=== PATIENT | female | born 1990 | race American Indian/Alaskan Native ===

== ENCOUNTER 2021-06-27 09:48 | Emergency (ER) | payer SELFPAY ==
[2021-06-27] MEDS ORDERED: BUTALB/ACETAMINOPHEN/CAFFEINE TAB PO ONE (10:38)
[2021-06-27] MEDS ORDERED: CYCLOBENZAPRINE 10 MG TAB PO ONE (10:38)
--- NOTE | 2021-06-27 11:11 | Emergency Department Report ---
ED Fall HPI - General Chief Complaint: Fall Stated Complaint: NECK/ SHOULDER Time Seen by Provider: 06/27/21 10:33 Source: patient Mode of arrival: Ambulatory Limitations: No Limitations - History of Present Illness Initial Comments: Patient is a 30-year-old female presents emergency room with complaints of a slip and fall that occurred yesterday. Patient states that she was in the shower when she slipped and fell. She is complaining of headache, neck pain, low back pain, right shoulder pain. She denies any loss of consciousness, vomiting, vision changes, numbness, weakness, bowel or bladder incontinence, any other injury. - Related Data Previous Rx's Medication Instructions Recorded Last Taken Type Naproxen 375 mg PO BID PRN #14 tablet 06/27/21 Unknown Rx methOCARBAMOL [Robaxin TAB] 500 mg PO BID PRN #14 tab 06/27/21 Unknown Rx Allergies Allergy/AdvReac Type Severity Reaction Status Date / Time coconut Allergy Swelling Verified 06/27/21 09:53 ED Review of Systems ROS: Stated complaint: NECK/ SHOULDER Other details as noted in HPI Comment: All other systems reviewed and negative ED Past Medical Hx - Past Medical History Previous Medical History?: No - Surgical History Past Surgical History?: No - Medications Home Medications: Home Medications Medication Instructions Recorded Confirmed Last Taken Type Naproxen 375 mg PO BID PRN #14 tablet 06/27/21 Unknown Rx methOCARBAMOL [Robaxin TAB] 500 mg PO BID PRN #14 tab 06/27/21 Unknown Rx ED Physical Exam - General Limitations: No Limitations General appearance: alert, in no apparent distress - Head Head exam: Present: atraumatic, normocephalic, other (no skull or facial bony ttp, no hematoma) - Eye Eye exam: Present: normal appearance - ENT ENT exam: Present: mucous membranes moist - Neck Neck exam: Present: normal inspection, tenderness (bilateral paraspinal c-spine ttp, no step offs, no deformities ), full ROM. Absent: meningismus - Respiratory Respiratory exam: Present: normal lung sounds bilaterally. Absent: respiratory distress, wheezes, rales, rhonchi, stridor, chest wall tenderness, accessory muscle use, decreased breath sounds, prolonged expiratory - Cardiovascular Cardiovascular Exam: Present: regular rate, normal rhythm, normal heart sounds. Absent: systolic murmur, diastolic murmur, rubs, gallop - Extremities Exam Extremities exam: Present: other (no bony ttp of the RUE, mild right trapezius ttp, no crepitus, no ecchymosis, no deformity, no sulcus sign, clavicles are eq ual, no clavicular ttp, FROM, neurovascularly intact) - Back Exam Back exam: Present: normal inspection, full ROM, paraspinal tenderness (bilateral lumbar paraspinal muscular ttp, no midline t-spine or l-spine ttp, no step offs, no deformities). Absent: vertebral tenderness - Neurological Exam Neurological exam: Present: alert, oriented X3, CN II-XII intact, normal gait. Absent: motor sensory deficit - Psychiatric Psychiatric exam: Present: normal affect, normal mood - Skin Skin exam: Present: warm, dry, intact ED Course Vital Signs 06/27/21 06/27/21 09:55 15:55 Temperature 98.5 F 98.7 F Pulse Rate 104 H 98 H Respiratory 20 18 Rate Blood Pressure 126/88 115/63 [Right] O2 Sat by Pulse 97 97 Oximetry ED Medical Decision Making - Lab Data Vital Signs 06/27/21 06/27/21 09:55 15:55 Temperature 98.5 F 98.7 F Pulse Rate 104 H 98 H Respiratory 20 18 Rate Blood Pressure 126/88 115/63 [Right] O2 Sat by Pulse 97 97 Oximetry - Radiology Data Radiology results: report reviewed Ordering Physician: CORA CHENG Date of Service: 06/27/21 Procedure(s): XR spine cervical 2-3V Accession Number(s): [id number] cc: CORA CHENG Fluoro Time In Minutes: Cervical spine-3 views Lumbar spine-3 views INDICATION: slip and fall, neck pain. COMPARISON: None. IMPRESSION: Cervical spine: Normal alignment. Mild lower cervical discogenic DJD and mild multilevel facet arthropathy. No acute osseous or soft tissue abnormality. Lumbar spine: Incompletely visualized mild thoracic levoscoliosis. Normal AP alignment. No significant discogenic DJD or facet arthropathy. No acute osseous or soft tissue abnormality. IUD noted in the mid pelvis. Signer Name: Abrahan Padilla MD Signed: 06/27/2021 11:19 AM Workstation Name: [id number] Transcribed By: TOBY Dictated By: Abrahan Padilla MD Electronically Authenticated By: Abrahan Padilla MD Signed Date/Time: 06/27/211118 DD/ 16 TD/TT: - Medical Decision Making Patient is a 30-year-old female presents emergency room with complaints of a sli p and fall that occurred yesterday. Patient states that she was in the shower when she slipped and fell. She is complaining of headache, neck pain, low back pain, right shoulder pain. She denies any loss of consciousness, vomiting, vision changes, numbness, weakness, bowel or bladder incontinence, any other injury. Vitals are stable. On exam:no skull or facial bony ttp, no hematoma, bilateral paraspinal c-spine ttp, no step offs, no deformities, no bony ttp of the RUE, mild right trapezius ttp, no crepitus, no ecchymosis, no deformity, no sulcus sign, clavicles are equal, no clavicular ttp, FROM, neurovascularly intact, bilateral lumbar paraspinal muscular ttp, no midline t-spine or l-spine ttp, no step offs, no deformities, no focal neuro deficits, ambulatory without difficulty. XR cervical spine: Cervical spine: Normal alignment. Mild lower cervical discogenic DJD and mild multilevel facet arthropathy. No acute osseous or soft tissue abnormality. XR lumbar spine: Lumbar spine: Incompletely visualized mild thoracic levoscoliosis. Normal AP alignment. No significant discogenic DJD or facet arthropathy. No acute osseous or soft tissue abnormality. IUD noted in the mid pelvis. [place] CT head rule is 0, CT imaging is not recommended. No clinical signs of acute emergent traumatic fracture or dislocation of the upper extremity. Patient given medications in the emergency room with improvement of symptoms. Advised patient to please take medication as prescribed as needed. May use ice pack, heating pad, rest, epsom salt bath. Follow-up with your primary care doctor for reexamination. Return to emergency room for any new or worsening symptoms. Critical care attestation.: If time is entered above; I have spent that time in minutes in the direct care of this critically ill patient, excluding procedure time. ED Disposition Clinical Impression: Neck pain Fall Qualifiers: Encounter type: initial encounter Qualified Code(s): W19.XXXA - Unspecified fall, initial encounter Low back pain Qualifiers: Chronicity: acute Back pain laterality: bilateral Sciatica presence: without sciatica Qualified Code(s): M54.50 - Low back pain, unspecified Right shoulder pain Qualifiers: Chronicity: acute Qualified Code(s): M25.511 - Pain in right shoulder Headache Qualifiers: Headache type: unspecified Headache chronicity pattern: acute headache Intractability: not intractable Qualified Code(s): R51.9 - Headache, unspecified Disposition: 01 HOME / SELF CARE / HOMELESS Is pt being admited?: No Does the pt Need Aspirin: No Condition: Stable Instructions: Musculoskeletal Pain Additional Instructions: please take medication as prescribed as needed. May use ice pack, heating pad, rest, epsom salt bath. Follow-up with your primary care doctor for reexamination. Return to emergency room for any new or worsening symptoms. Prescriptions: Naproxen 375 mg PO BID PRN #14 tablet PRN Reason: pain methOCARBAMOL [Robaxin TAB] 500 mg PO BID PRN #14 tab PRN Reason: muscle spasm/pain Referrals: ANNY RAM MD [Primary Care Provider] - 3-5 Days JESUS ALBERTO KELLER MD [Staff Physician] - 3-5 Days [facility] [Provider Group] - 3-5 Days Time of Disposition: 11:36 Print Language: PRYDEINIG
--- NOTE | 2021-06-27 11:23 | XRay Report ---
Cervical spine-3 views Lumbar spine-3 views INDICATION: slip and fall, neck pain. COMPARISON: None. IMPRESSION: Cervical spine: Normal alignment. Mild lower cervical discogenic DJD and mild multilevel facet arthr opathy. No acute osseous or soft tissue abnormality. Lumbar spine: Incompletely visualized mild thoracic levoscoliosis. Normal AP alignment. No significa nt discogenic DJD or facet arthropathy. No acute osseous or soft tissue abnormality. IUD noted in t he mid pelvis. Signer Name: Abrahan Padilla MD Signed: 06/27/2021 11:19 AM Workstation Name: [id number]
[2021-06-27 15:56] VITALS: BP 115/63
== END 2021-06-27 12:07 | disposition home or self-care (01) ==
LOC: ED 09:48
DX: R51.9 Headache, unspecified (principal); M54.2 Cervicalgia; M54.50 Low back pain, unspecified; M25.511 Pain in right shoulder; Z91.018 Allergy to other foods; W18.30XA Fall on same level, unspecified, initial encounter; Y93.89 Activity, other specified; Y92.89 Other specified places as the place of occurrence of the external cause; Y99.8 Other external cause status
CPT/HCPCS: 72040; 72100; 99283

== ENCOUNTER 2021-11-10 22:44 | Emergency (ER) | payer SELFPAY ==
[2021-11-10 23:03] VITALS: BP 125/89
[2021-11-11] MEDS ORDERED: TETANUS,DIPH,PERTUSS(ACELL) VACCINE 0.5 ML SYRINGE IM ONE (03:55)
--- NOTE | 2021-11-11 04:22 | Emergency Department Report ---
- General Chief Complaint: Wound/Laceration Stated Complaint: RIGHT FINGER INJURY Time Seen by Provider: 11/11/21 03:27 Source: patient Mode of arrival: Ambulatory Limitations: No Limitations - History of Present Illness Initial Comments: 30 yo black female with no pmh presents to ed for evaluation of laceration to right hand. She states that she was washing dishes and accidentally cut her hand between the 5th and 4th fingers. She states that her Tdap is not up to date. -: Sudden, hour(s) Extremity Location: Right: Hand (between 4th and 5th finger. ) Place: home Patient Tetanus UTD: No Context: accidental Associated Symptoms: pain Treatments Prior to Arrival: other (none) - Related Data Previous Rx's Medication Instructions Recorded Last Taken Type Naproxen 375 mg PO BID PRN #14 tablet 06/27/21 Unknown Rx methOCARBAMOL [Robaxin TAB] 500 mg PO BID PRN #14 tab 06/27/21 Unknown Rx Allergies Allergy/AdvReac Type Severity Reaction Status Date / Time coconut Allergy Swelling Verified 06/27/21 09:53 ED Review of Systems ROS: Stated complaint: RIGHT FINGER INJURY Other details as noted in HPI Comment: All other systems reviewed and negative Constitutional: denies: chills, fever Eyes: denies: vision change ENT: denies: congestion Respiratory: denies: orthopnea Cardiovascular: denies: chest pain, palpitations Gastrointestinal: denies: abdominal pain Genitourinary: denies: dysuria Musculoskeletal: denies: back pain Skin: other (laceration) Neurological: denies: headache Psychiatric: denies: anxiety Hematological/Lymphatic: denies: easy bleeding, easy bruising ED Past Medical Hx - Medications Home Medications: Home Medications Medication Instructions Recorded Confirmed Last Taken Type Naproxen 375 mg PO BID PRN #14 tablet 06/27/21 Unknown Rx methOCARBAMOL [Robaxin TAB] 500 mg PO BID PRN #14 tab 06/27/21 Unknown Rx ED Physical Exam - General Limitations: No Limitations General appearance: alert, in no apparent distress - Head Head exam: Present: atraumatic, normocephalic - Eye Eye exam: Present: normal appearance. Absent: conjunctival injection - Respiratory Respiratory exam: Absent: respiratory distress - Cardiovascular Cardiovascular Exam: Present: regular rate - GI/Abdominal GI/Abdominal exam: Absent: distended - Expanded Upper Extremity Exam Right General: Present: laceration Hand Wrist exam: Present: tenderness, laceration Hand L/R Front: 1 - Positive: laceration Vascular: Present: normal capillary refill, radial pulse. Absent: vascular compromise, Pallo, pulse deficit radial art - Back Exam Back exam: Present: normal inspection - Neurological Exam Neurological exam: Present: alert, oriented X3 - Psychiatric Psychiatric exam: Present: normal affect, normal mood - Skin Skin exam: Present: warm, dry, intact, normal color ED Course Vital Signs 11/10/21 23:02 Temperature 98.9 F Pulse Rate 85 Respiratory 16 Rate Blood Pressure 125/89 [Right] O2 Sat by Pulse 100 Oximetry - Laceration /Wound Repair Right Hand Wound Location: head Wound Length (cm): 1 (1.5) Wound's Depth, Shape: linear Wound Explored: clean Irrigated w/ Saline (ccs): 60 Betadine Prep?: No Anesthesia: 1% Lidocaine Volume Anesthetic (ccs): 2 Wound Repaired With: sutures Suture Size/Type: 5:0, proline Number of Sutures: 3 Layer Closure?: No Sterile Dressing Applied?: Yes Progress: Patient tolerated well ED Medical Decision Making - Medical Decision Making 30 yo black female with no pmh presents to ed for evaluation of laceration to right hand. She states that she was washing dishes and accidentally cut her hand between the 5th and 4th fingers. She states that her Tdap is not up to date. Hand laceration repaired per procedure note. Tday updated. Patient advised to monitor for signs of infection and if any noted to return to ED immediately. She is advised to have sutures removed in 7-10 days. She verbalized understanding of and agreement with plan of care. Critical care attestation.: If time is entered above; I have spent that time in minutes in the direct care of this critically ill patient, excluding procedure time. ED Disposition Clinical Impression: Hand laceration Qualifiers: Encounter type: initial encounter Foreign body presence: without foreign body Laterality: right Qualified Code(s): S61.411A - Laceration without foreign body of right hand, initial encounter Disposition: HOME / SELF CARE / HOMELESS Is pt being admited?: No Does the pt Need Aspirin: No Condition: Stable Instructions: Laceration Care, Adult, [id number], Sutured Wound Care, Ea sy-to-Read Additional Instructions: Monitor for signs of infection and if any noted return to the emergency department immediately. Have stitches removed in 7 to 10 days. Referrals: JESUS ALBERTO KELLER MD [Primary Care Provider] - 3-5 Days Time of Disposition: 04:21
== END 2021-11-11 05:00 | disposition home or self-care (01) ==
LOC: ED 22:44
DX: S61.411A Laceration without foreign body of right hand, initial encounter (principal); Z91.018 Allergy to other foods; Z79.899 Other long term (current) drug therapy; W26.8XXA Contact with other sharp object(s), not elsewhere classified, initial encounter; Y93.G1 Activity, food preparation and clean up; Y92.89 Other specified places as the place of occurrence of the external cause; Y99.8 Other external cause status
CPT/HCPCS: 90471; 90715; 99282